=== PATIENT | male | born 1995 | race African-American/Black ===

== ENCOUNTER → 2025-02-03 14:46 | Outpatient (BNVA) | payer OTHER, SELFPAY | DX: Z11.3 Encounter for screening for infections with a predominantly sexual mode of transmission (principal); Z71.1 Person with feared health complaint in whom no diagnosis is made; R39.9 Unspecified symptoms and signs involving the genitourinary system | CPT/HCPCS: 81000; 86592; 87491; 87591; 87661; 87806 ==